=== PATIENT | female | born 1965 | race Two or more races ===

== ENCOUNTER 2019-01-23 08:41 | Inpatient (IN) | payer OTHER ==
[2019-01-23 09:51] VITALS: BMI 29.2
--- NOTE | 2019-01-23 11:02 | HP ---
CIWA Score Nausea/Vomitin Muscle Tremors: 4-Moderate,w/Arms Extend Anxiety: 3 Agitation: 4-Moderately Restless Paroxysmal Sweats: 3 Orientation: 2-Disoriented Date<2 days Tacttile Disturbances: 2-Mild Itch/Numbness/Burn Auditory Disturbances: 0-None Visual Disturbances: 0-None Headache: 2-Mild CIWA-Ar Total Score: 23 - Admission Criteria OASAS Guidelines: Admission for Medically Managed Detox: Requires at least one of the followin. CIWA greater than 12 2. Seizures within the past 24 hours 3. Delirium tremens within the past 24 hours 4. Hallucinations within the past 24 hours 5. Acute intervention needed for co occurring medical disorder 6. Acute intervention needed for co occurring psychiatric disorder 7. Severe withdrawal that cannot be handled at a lower level of care (continued vomiting, continued diarrhea, abnormal vital signs) requiring intravenous medication and/or fluids 8. Admission ROS S - HPI Chief Complaint: " I am here because I drink too much and I have anxiety and depression." Allergies/Adverse Reactions: Allergies Allergy/AdvReac Type Severity Reaction Status Date / Time No Known Allergies Allergy Verified 01/23/19 09:42 History of Present Illness: 53 female with history of alcohol dependence. Patient uses 30 oz of vodka daily, last drank last night. Patient denies seizures withdrawal and no prior blackouts. Patient detox at [facility] but did not complete it. 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 She was to get another MRI to see if it has spread or gotten larger. She says that she has a scheduled brain biopsy in 01/27/19. She does report having a TIA 5 years ago. She has been told that she has LFT's elevation in the past. HTN; she also has thrombocytopenia in the past. Meds: can't remember what meds she takes. All: None Patient has no legal issues pending. Patient is domiciled and has daughter, son and boyfriend that support her. - Ebola screening Have you traveled outside of the country in the last 21 days: No (N) Have you had contact with anyone from an Ebola affected area: No Have you been sick,other than usual withdrawal symptoms: No Do you have a fever: No - Review of Systems Constitutional: Diaphoresis, Loss of Appetite EENT: reports: Blurred Vision Respiratory: reports: No Symptoms reported Cardiac: reports: Chest Pain (but is more musculoskeletal in nature without associated dizziness or lightheadedness) GI: reports: No Symptoms Reported, Nausea, Vomiting, Abdominal cramping : reports: Other (dark and foul smelling urine....never completed an oral course of antibiotic.) Musculoskeletal: reports: Back Pain (stenosis of spine) Integumentary: reports: Bruising (both hands have bruising on dorsal surfaces.) Neuro: reports: Headache Endocrine: reports: No Symptoms Reported Hematology: reports: Anemia Psychiatric: reports: Judgement Intact, Mood/Affect Appropiate, Orientated x3 Other Systems: Reviewed and Negative Patient History - Patient Medical History Hx Anemia: Yes Hx Asthma: No Hx Chronic Obstructive Pulmonary Disease (COPD): No Hx Cancer: No Hx Cardiac Disorders: No Hx Congestive Heart Failure: No Hx Hypertension: Yes Hx Hypercholesterolemia: No Hx Pacemaker: No HX Cerebrovascular Accident: Yes (TIA 5 years ago) Hx Seizures: No Hx Dementia: No Hx Diabetes: No Hx Gastrointestinal Disorders: No Hx Liver Disease: Yes (told elevated lfts) Hx Genitourinary Disorders: Yes (UTI on antibiotics but didn't complete) Hx Sexually Transmitted Disorders: No Hx Renal Disease (ESRD): No Hx Thyroid Disease: No Hx Human Immunodeficiency Virus (HIV): No Hx Hepatitis C: No Hx Depression: Yes Hx Suicide Attempt: No Hx Bipolar Disorder: No Hx Schizophrenia: No - Patient Surgical History Past Surgical History: No Hx Neurologic Surgery: Yes (planned biopsy of brain tumor 01/27/19) Hx Cataract Extraction: No Hx Cardiac Surgery: No Hx Lung Surgery: No Hx Breast Surgery: No Hx Breast Biopsy: No Hx Abdominal Surgery: No Hx Appendectomy: No Hx Cholecystectomy: No Hx Genitourinary Surgery: No Hx Section: No Hx Orthopedic Surgery: No Hx Hysterectomy: No Anesthesia Reaction: No - Reproductive History Patient is a Female of Child Bearing Age (11 -55 yrs old): Yes - Smoking Cessation Smoking history: Current every day smoker Aproximately how many cigarettes per day: 10 Hx Chewing Tobacco Use: No Initiated information on smoking cessation: Yes 'Breaking Loose' booklet given: 01/23/19 - Substance & Tx. History Hx Alcohol Use: Yes (30 oz of vodka daily) Hx Substance Use: No Substance Use Type: Alcohol Hx Substance Use Treatment: Yes (detox at [facility]) - Substances abused Alcohol Substance route: Oral Frequency: Daily Amount used: 30 ounces of vodka. Age of first use: 12 Date of last use: 01/22/19 Family Disease History - Family Disease History Family History: Unremarkable Admission Physical Exam B[facility] - Vital Signs Vital Signs: Vital Signs - 24 hr 01/23/19 09:41 Temperature 97.6 F Pulse Rate 71 Respiratory 16 Rate Blood Pressure 196/104 H - Physical General Appearance: Yes: Moderate Distress, Alcohol on Breath HEENTM: Yes: EOMI, Hearing grossly Normal, Normocephalic, JENNIFER, Pharynx Normal, Tm's normal Respiratory: Yes: Chest Non-Tender, Lungs Clear, Normal Breath Sounds, No Respiratory Distress, No Accessory Muscle Use Neck: Yes: No masses,lesions,Nodules, Supple, Trachea in good position Breast: Yes: Within Normal Limits Cardiology: Yes: Regular Rhythm, Regular Rate, Tachycardia Abdominal: Yes: Non Tender, Soft, Increased Bowel Sounds Genitourinary: Yes: Polyuria Back: Yes: Normal Inspection Musculoskeletal: Yes: full range of Motion, Gait Steady Extremities: Yes: Normal Capillary Refill, Non-Tender, Other (bruising dorsum of hands bilaterally) Neurological: Yes: property economist II-XII NML intact, Fully Oriented, Alert, Motor Strength 5/5, Normal Mood/Affect Integumentary: Yes: Normal Color, Warm Lymphatic: Yes: Within Normal Limits - Diagnostic (1) Hypertension Current Visit: Yes Status: Acute (2) LFT elevation Current Visit: Yes Status: Acute (3) Urinary tract infection Current Visit: Yes Status: Acute (4) Spinal stenosis Current Visit: Yes Status: Acute (5) Brain tumor Current Visit: Yes Status: Acute (6) Thrombocytopenia Current Visit: Yes Status: Acute Screened but not Admitted - Documentation of Visit Screened but not Admitted: No Breathalyzer - Breathalyzer Breathalyzer: 0.071 Vital Signs - Vital Signs Vital signs refused: No Temperature: 97.6 F Temperature source: Oral Pulse Rate: 71 Respiratory Rate: 16 Blood Pressure: 196/104 BP Location: Left Arm Blood Pressure position: Sitting - Height Height: 5 ft 9 in - Weight Weight: 198 lb Weight measurement method: Standing scale - BMI Body Mass Index (BMI): 29.2 - Bowel Function Bowel Movement: Yes Urine Drug Screen - Test Device Lot number: [id number] Expiration date: 10/17/20 - Control Is test valid?: Yes - Results Drug screen NEGATIVE: No Urine drug screen results: BZO-Benzodiazepines Inpatient Rehab Admission - Rehab Decision to Admit Inpatient rehab admission?: No
[2019-01-23] MEDS ORDERED: ACETAMINOPHEN 325 MG TABLET (FP) PO PRN ×2 (11:19)
[2019-01-23] MEDS ORDERED: MAGNESIUM HYDROX 2400MG/30ML ORAL SUSPENSION 30 ML CUP PO PRN (11:19)
[2019-01-23] MEDS ORDERED: IBUPROFEN 400 MG TABLET (FP) PO PRN (11:19)
[2019-01-23] MEDS ORDERED: MAGNESIUM CITRATE 300 ML BOTTLE PO PRN (11:19)
[2019-01-23] MEDS ORDERED: MENTHOL/PHENOL 1 EACH UD MM PRN (11:19)
[2019-01-23] MEDS ORDERED: MAG HYDROX/AL HYDROX/SIMETH 30 ML UNIT-DOSE CUP PO PRN (11:19)
[2019-01-23] MEDS: LORazepam 1 MG TABLET PO PRN ×2 (12:19→18:18)
[2019-01-23] MEDS ORDERED: TRIMETHOBENZAMIDE HCL 200MG/2ML INJ IM PRN (14:18)
[2019-01-23] MEDS: THIAMINE HCL 100 MG TABLET (FP) PO SCH ×2 (14:20→22:29)
[2019-01-23] MEDS: CEPHALEXIN MONOHYDRATE 500 MG CAPSULE (UD) PO SCH ×3 (14:23→22:29)
--- NOTE | 2019-01-23 15:59 | PN ---
[facility] Progress Note Note: FIRST THREE BP READINGS NOTED TO BE SIGNIFICANTLY ELEVATED THUS FAR SINCE TIME OF DETOX ADMISSION. FIRST DOSE OF NADOLOL, 10 MG PO DAILY (PATIENT REPORTED THAT SHE TAKES THIS MEDICATION ON OUTPATIENT BASIS TIME OF ADMISSION TO DETOX ) ORDERED FOR NOW. WILL CONTINUE TO MONITOR BP. Radha ALTMAN NP
[2019-01-23] MEDS: hydrOXYzine PAMOATE 25 MG CAPSULE (FP) PO PRN ×2 (17:04→22:29)
[2019-01-23] MEDS: NADOLOL 20 MG TABLET (FP) PO SCH (17:04)
[2019-01-23 18:13] LABS: HEMATOCRIT 36.6 % (32.4-45.2); MCH 31.1 pg (25.7-33.7); MCHC 32.7 g/dl (32.0-36.0); MEAN CELL VOLUME 95.1 fl (80-96); MEAN PLT VOLUME 9.1 fl (7.5-11.1); PLATELET COUNT 52 K/MM3 (134-434); RBC 3.85 M/mm3 (3.60-5.2); RDW 18.5 % (11.6-15.6); WHITE BLOOD COUNT 3.3 K/mm3 (4.0-10.0)
[2019-01-23 18:18] LABS: BILIRUBIN,TOTAL 1.1 mg/dL (0.2-1); BLOOD UREA NITROGEN 12.6 mg/dL (7-18); CALCIUM 9.1 mg/dL (8.5-10.1); CREATININE 0.5 mg/dL (0.55-1.3); POTASSIUM 3.7 mmol/L (3.5-5.1)
[2019-01-23] MEDS: BISMUTH SUBSALICYLATE 262 MG/15 ML BTL PO PRN (19:08)
[2019-01-23] MEDS: LORazepam 2 MG TABLET PO SCH (22:29)
[2019-01-23] MEDS: METHOCARBAMOL 500 MG TABLET PO PRN (22:29)
--- NOTE | 2019-01-23 23:40 | PN ---
S Progress Note (SOAP) Subjective: (L) sided dull CP earlier. Denies pain or SOB at this time. States frequent vomiting r/t withdrawal. Objective: A&O. HR: RR Lungs CTA. Retching. Increased bowel sounds. Abd S/NT. Tremors. Vital Signs - 24 hr 01/23/19 01/23/19 01/23/19 09:41 11:18 14:31 Temperature 97.6 F 97.6 F 98.3 F Pulse Rate 71 71 73 Respiratory 16 16 18 Rate Blood Pressure 196/104 H 196/104 H 198/105 H 01/23/19 01/23/19 17:47 21:20 Temperature 98.2 F 98.2 F Pulse Rate 69 71 Respiratory 18 18 Rate Blood Pressure 186/101 H 158/99 EKG reviewed: NSR w/ (L) axis deviation; incomplete (R) BBB; cannot r/o anterior infarct; age undetermined. No prior EKS for comparison. Laboratory Last Values WBC 3.3 K/mm3 (4.0-10.0) L 01/23/19 13:30 RBC 3.85 M/mm3 (3.60-5.2) 01/23/19 13:30 Hgb 12.0 GM/dL (10.7-15.3) 01/23/19 13:30 Hct 36.6 % (32.4-45.2) 01/23/19 13:30 MCV 95.1 fl (80-96) 01/23/19 13:30 MCH 31.1 pg (25.7-33.7) 01/23/19 13:30 MCHC 32.7 g/dl (32.0-36.0) 01/23/19 13:30 RDW 18.5 % (11.6-15.6) H 01/23/19 13:30 Plt Count 52 K/MM3 (134-434) L 01/23/19 13:30 MPV 9.1 fl (7.5-11.1) 01/23/19 13:30 Sodium 137 mmol/L (136-145) 01/23/19 13:30 Potassium 3.7 mmol/L (3.5-5.1) 01/23/19 13:30 Chloride 102 mmol/L (98-107) 01/23/19 13:30 Carbon Dioxide 24 mmol/L (21-32) 01/23/19 13:30 Anion Gap 12 MMOL/L (8-16) 01/23/19 13:30 BUN 12.6 mg/dL (7-18) 01/23/19 13:30 Creatinine 0.5 mg/dL (0.55-1.3) L 01/23/19 13:30 Est GFR (CKD-EPI)AfAm 128.07 01/23/19 13:30 Est GFR (CKD-EPI)NonAf 110.50 01/23/19 13:30 Random Glucose 95 mg/dL (74-106) 01/23/19 13:30 Calcium 9.1 mg/dL (8.5-10.1) 01/23/19 13:30 Total Bilirubin 1.1 mg/dL (0.2-1) H 01/23/19 13:30 AST 496 U/L (15-37) H 01/23/19 13:30 ALT 118 U/L (13-61) H 01/23/19 13:30 Alkaline Phosphatase 223 U/L (45-117) H 01/23/19 13:30 Total Protein 8.0 g/dl (6.4-8.2) 01/23/19 13:30 Albumin 4.0 g/dl (3.4-5.0) 01/23/19 13:30 RPR Titer Nonreactive (NONREACTIVE) 01/23/19 13:30 Labs reviewed. 01/24/19 00:20 Assessment: Alcohol withdrawal. Hypertension. Elevated LFT's. Past hx chest pain. Abnormal EKG 01/24/19 00:20 Plan: Send to ED via ambulance. Report given to Dr. Almonte @ [facility] ED. Patient to return to , from ED, after eval. Monitor VS q4h
[2019-01-24] MEDS: LORazepam 2 MG TABLET PO SCH ×4 (05:45→22:43)
[2019-01-24] MEDS ORDERED: cloNIDine HCL 0.1 MG TABLET PO ONE (08:04)
--- NOTE | 2019-01-24 08:08 | PN ---
[facility] Progress Note Note: Patient's blood pressure this morning is B/P 181/114 Vital Signs Temperature 99.0 F 01/24/19 07:01 Pulse Rate 80 01/24/19 07:57 Respiratory Rate 18 01/24/19 07:57 Blood Pressure 181/114 H 01/24/19 07:57 O2 Sat by Pulse Oximetry (%) Action: Clonidine 0.1mg tablet oral daily
[2019-01-24] MEDS: LORazepam 1 MG TABLET PO PRN (08:57)
[2019-01-24] MEDS ORDERED: NADOLOL 20 MG TABLET (FP) PO SCH (10:00)
[2019-01-24] MEDS: PRENATAL VITAMINS W/ FOLIC ACID TABLET (FP) PO SCH (10:21)
[2019-01-24] MEDS: NADOLOL 20 MG TABLET (FP) PO SCH (10:21)
[2019-01-24] MEDS: CEPHALEXIN MONOHYDRATE 500 MG CAPSULE (UD) PO SCH ×4 (10:21→22:43)
[2019-01-24] MEDS: THIAMINE HCL 100 MG TABLET (FP) PO SCH ×2 (10:23→22:42)
[2019-01-24] MEDS: LIDOCAINE 5% TOPICAL PATCH TP SCH (11:33)
--- NOTE | 2019-01-24 13:34 | CONSULT ---
[facility] Psychiatric Consult - Data Date of interview: 01/24/19 Admission source: [facility] Identifying data: First admission to [facility] for this 53 y/o [place]born female self-referred for detoxification (alcohol). Interviewed at [address] [place] [address]. Patient is , mother of two, domiciled (lives with second ), unemployed, disabled and supported by spouse. Substance Abuse History: Discussed with the patient. Details concordant with current [facility] report as follows : Smoking history: Current every day smoker. Aproximately how many cigarettes per day: 10. Hx Chewing Tobacco Use: No. Initiated information on smoking cessation: Yes. 'Breaking Loose' booklet given : 01/23/19. - Substance & Tx. History. Hx Alcohol Use: Yes (30 oz of vodka daily). Hx Substance Use: No. Substance Use Type: Alcohol. Hx Substance Use Treatment: Yes (detox at [facility]). - Substances abused. Alcohol. Substance route: Oral. Frequency: Daily. Amount used: 30 ounces of vodka. Age of first use: 12. Date of last use: 01/22/19 Medical History: Remarkable for a history of transient ischemic attacks, brain tumor, spinal stenosis, hypertension, elevated transaminases and difficult ambulation (patient uses a cane). Psychiatric History: Patient denies history of psychiatric hospitalizations, psychiatric OPD care or suicide attempts. She admits to chronic dysphoria and mild anxiety for which she gets " a medication " from her primary care provider. In this interview, the patient has expressed her preference for psychotherapy and counseling. Physical/Sexual Abuse/Trauma History: Patient denies history of abuse. Additional Comment: Urine drug screen results: BZO-Benzodiazepines. Noted. Mental Status Exam - Mental Status Exam Alert and Oriented to: Time, Place, Person Cognitive Function: Good Patient Appearance: Well Groomed Mood: Apprehensive (moderately anxious) Affect: Appropriate, Normal Range Patient Behavior: Fatigued, Appropriate, Cooperative Speech Pattern: Clear (fluent in british [place] islander), Appropriate Voice Loudness: Normal Thought Process: Intact, Goal Oriented Thought Disorder: Not Present Hallucinations: Denies Suicidal Ideation: Denies Homicidal Ideation: Denies Insight/Judgement: Fair Sleep: Well Appetite: Fair Gait/Station: Other (walks with a cane) Psychiatric Findings - Problem List ([place] 1, 2,3) (1) Alcohol use disorder Current Visit: Yes Status: Chronic (2) Alcohol-induced mood disorder Current Visit: Yes Status: Suspected - Initial Treatment Plan Initial Treatment Plan: Psychoeducation. Sleep hygiene. Support. Counseling. Detoxification. Observation.
--- NOTE | 2019-01-24 17:09 | PN ---
[facility] CIWA - CIWA Score Nausea/Vomitin-No Nausea/No Vomiting Muscle Tremors: 3 Anxiety: 3 Agitation: 2 Paroxysmal Sweats: 3 Orientation: 0-Oriented Tacttile Disturbances: 1-Very Mild Itch/Numbness Auditory Disturbances: 0-None Visual Disturbances: 1-Very Mild Sensitivity Headache: 0-None Present CIWA-Ar Total Score: 13 S Progress Note (SOAP) Subjective: Tremors, Sweating, Anxious. Objective: PATIENT A & O X 3, OBSERVED AMBULATING ON DETOX UNIT WITH ASSISTANCE OF A CANE. IN NO ACUTE DISTRESS. PATIENT DENIES CHEST PAIN, DIZZINESS, AND SOB AT THIS TIME. 01/24/19 17:07 Vital Signs Temperature 97.0 F L 01/24/19 13:36 Pulse Rate 76 01/24/19 13:36 Respiratory Rate 18 01/24/19 13:36 Blood Pressure 147/96 01/24/19 13:36 O2 Sat by Pulse Oximetry (%) Laboratory Tests 01/23/19 01/23/19 01/23/19 13:30 13:30 13:30 WBC 3.3 L RBC 3.85 Hgb 12.0 Hct 36.6 MCV 95.1 MCH 31.1 MCHC 32.7 RDW 18.5 H Plt Count 52 L MPV 9.1 Sodium 137 Potassium 3.7 Chloride 102 Carbon Dioxide 24 Anion Gap 12 BUN 12.6 Creatinine 0.5 L Est GFR (CKD-EPI)AfAm 128.07 Est GFR (CKD-EPI)NonAf 110.50 Random Glucose 95 Calcium 9.1 Total Bilirubin 1.1 H AST 496 H ALT 118 H Alkaline Phosphatase 223 H Total Protein 8.0 Albumin 4.0 RPR Titer Nonreactive LABS NOTED. RESULTS OF DETOX ADMISSION QFT /TB TEST PENDING. 01/24/19 17:09 Assessment: 01/24/19 17:09 WITHDRAWAL SYMPTOMS. LEUKOPENIA. THROMBOCYTOPENIA. ELEVATED LIVER ENZYMES (PATIENT REPORTS HISTORY OF CIRRHOSIS OF LIVER). HYPERTENSION. 01/24/19 17:10 Plan: CONTINUE DETOX. INCREASE DAILY PO WATER INTAKE. INCREASE DAILY DOSE OF NADOLOL TO 20 MG PO DAILY FOR PERSISTENTLY ELEVATED BLOOD PRESSURE DESPITE PREVIOUS TREATMENT. HEPATIC FUNCTION PANEL ORDERED FOR TOMORROW AM TO SEE IF ANY CHANGE IN LIVER ENZYME LEVELS FROM DETOX ADMISSION LIVER ENZYME LEVELS. PATIENT ADVISED TO FOLLOW-UP WITH DEVELOPMENT SPEC SOON POSSIBLE AFTER DISCHARGE FROM DETOX UNIT FOR GENERAL MEDICAL EVALUATION AND FOR HISTORY OF HYPERTENSION AND FOR ELEVATED BLOOD PRESSURE READINGS NOTED WHILE ADMITTED FOR DETOX. PATIENT VERBALIZED UNDERSTANDING OF RECOMMENDATION.
[2019-01-24] MEDS ORDERED: NADOLOL 20 MG TABLET (FP) PO ONE (17:15)
[2019-01-24] MEDS: LACTOBACILLUS ACIDOPHILUS 1 TABLET PO SCH (17:40)
[2019-01-24] MEDS: MELATONIN 5 MG TABLETS PO PRN (22:44)
[2019-01-24] MEDS: LIDOCAINE PATCH REMOVAL MC SCH (23:00)
[2019-01-25] MEDS: LORazepam 1 MG TABLET PO SCH ×4 (05:54→22:10)
[2019-01-25] MEDS: LACTOBACILLUS ACIDOPHILUS 1 TABLET PO SCH (10:23)
[2019-01-25] MEDS: THIAMINE HCL 100 MG TABLET (FP) PO SCH ×2 (10:23→22:11)
[2019-01-25] MEDS: NADOLOL 20 MG TABLET (FP) PO SCH (10:23)
[2019-01-25] MEDS: PRENATAL VITAMINS W/ FOLIC ACID TABLET (FP) PO SCH (10:23)
[2019-01-25] MEDS: CEPHALEXIN MONOHYDRATE 500 MG CAPSULE (UD) PO SCH ×4 (10:23→22:10)
[2019-01-25] MEDS: LIDOCAINE 5% TOPICAL PATCH TP SCH (10:24)
[2019-01-25 10:35] LABS: ALBUMIN 4.1 g/dl (3.4-5.0); BILIRUBIN,DIRECT 0.8 mg/dL (0.0-0.2); BILIRUBIN,TOTAL 1.8 mg/dL (0.2-1); TOT PROT 8.5 g/dl (6.4-8.2)
--- NOTE | 2019-01-25 16:04 | PN ---
[facility] CIWA - CIWA Score Nausea/Vomitin-No Nausea/No Vomiting Muscle Tremors: 2 Anxiety: 3 Agitation: 2 Paroxysmal Sweats: 1-Minimal Palms Moist Orientation: 0-Oriented Tacttile Disturbances: 1-Very Mild Itch/Numbness Auditory Disturbances: 0-None Visual Disturbances: 0-None Headache: 0-None Present CIWA-Ar Total Score: 9 S Progress Note (SOAP) Subjective: 53 years old female 1st patient [facility] admission was admitted on 01/23/19 for alcohol withdrawal sx managment doing well with ativan detox regimen social wtih peers in day room tolerate cephalexin well Objective: 01/25/19 16:06 Vital Signs Temperature 97.9 F 01/25/19 13:32 Pulse Rate 74 01/25/19 13:32 Respiratory Rate 18 01/25/19 13:32 Blood Pressure 128/81 01/25/19 13:32 O2 Sat by Pulse Oximetry (%) Laboratory Last Values WBC 3.3 K/mm3 (4.0-10.0) L 01/23/19 13:30 RBC 3.85 M/mm3 (3.60-5.2) 01/23/19 13:30 Hgb 12.0 GM/dL (10.7-15.3) 01/23/19 13:30 Hct 36.6 % (32.4-45.2) 01/23/19 13:30 MCV 95.1 fl (80-96) 01/23/19 13:30 MCH 31.1 pg (25.7-33.7) 01/23/19 13:30 MCHC 32.7 g/dl (32.0-36.0) 01/23/19 13:30 RDW 18.5 % (11.6-15.6) H 01/23/19 13:30 Plt Count 52 K/MM3 (134-434) L 01/23/19 13:30 MPV 9.1 fl (7.5-11.1) 01/23/19 13:30 Sodium 137 mmol/L (136-145) 01/23/19 13:30 Potassium 3.7 mmol/L (3.5-5.1) 01/23/19 13:30 Chloride 102 mmol/L (98-107) 01/23/19 13:30 Carbon Dioxide 24 mmol/L (21-32) 01/23/19 13:30 Anion Gap 12 MMOL/L (8-16) 01/23/19 13:30 BUN 12.6 mg/dL (7-18) 01/23/19 13:30 Creatinine 0.5 mg/dL (0.55-1.3) L 01/23/19 13:30 Est GFR (CKD-EPI)AfAm 128.07 01/23/19 13:30 Est GFR (CKD-EPI)NonAf 110.50 01/23/19 13:30 Random Glucose 95 mg/dL (74-106) 01/23/19 13:30 Calcium 9.1 mg/dL (8.5-10.1) 01/23/19 13:30 Total Bilirubin 1.8 mg/dL (0.2-1) H 01/25/19 08:00 Direct Bilirubin 0.8 mg/dL (0.0-0.2) H 01/25/19 08:00 AST 248 U/L (15-37) H 01/25/19 08:00 ALT 91 U/L (13-61) H 01/25/19 08:00 Alkaline Phosphatase 205 U/L (45-117) H 01/25/19 08:00 Total Protein 8.5 g/dl (6.4-8.2) H 01/25/19 08:00 Albumin 4.1 g/dl (3.4-5.0) 01/25/19 08:00 RPR Titer Nonreactive (NONREACTIVE) 01/23/19 13:30 TB (QFT) Incubation (.) 01/23/19 13:30 TB Test (QFT) Nil 0.04 IU/mL (.) 01/23/19 13:30 TB Test (QFT) Mitogen 5.99 IU/mL (.) 01/23/19 13:30 TB Test (QFT) Antigen 0.03 IU/mL (.) 01/23/19 13:30 TB Test (QFT) Negative (Negative) 01/23/19 13:30 TB Positive Criteria (.) 01/23/19 13:30 lab noted ast reduction about 50% repeat ast 01/25/19 16:08 Assessment: 01/25/19 16:09 alcohol withdrawal sx Plan: continue ativan detox regimen
--- NOTE | 2019-01-25 17:18 | EKG ---
Test Reason : Blood Pressure : / mmHG Vent. Rate : 069 BPM Atrial Rate : 069 BPM P-R Int : 158 ms QRS Dur : 116 ms QT Int : 446 ms P-R-T Axes : 044 -33 -10 degrees QTc Int : 477 ms NORMAL SINUS RHYTHM LEFT AXIS DEVIATION INCOMPLETE RIGHT BUNDLE BRANCH BLOCK CANNOT RULE OUT ANTERIOR INFARCT , AGE UNDETERMINED ABNORMAL ECG NO PREVIOUS ECGS AVAILABLE Confirmed by DEBRA HERRMANN MD ([id number]) on 01/25/2019 5:18:25 PM Referred By: Confirmed By:DEBRA HERRMANN MD
[2019-01-25] MEDS: MELATONIN 5 MG TABLETS PO PRN (22:11)
[2019-01-25] MEDS: LIDOCAINE PATCH REMOVAL MC SCH (22:11)
[2019-01-26] MEDS ORDERED: LORazepam 0.5 MG TABLET PO PRN ×2
[2019-01-26] MEDS: LORazepam 0.5 MG TABLET PO SCH ×4 (05:29→22:35)
[2019-01-26] MEDS: LACTOBACILLUS ACIDOPHILUS 1 TABLET PO SCH (10:25)
[2019-01-26] MEDS: PRENATAL VITAMINS W/ FOLIC ACID TABLET (FP) PO SCH (10:25)
[2019-01-26] MEDS: NADOLOL 20 MG TABLET (FP) PO SCH (10:25)
[2019-01-26] MEDS: LIDOCAINE 5% TOPICAL PATCH TP SCH (10:26)
[2019-01-26] MEDS: THIAMINE HCL 100 MG TABLET (FP) PO SCH ×2 (10:28→22:35)
[2019-01-26] MEDS: CEPHALEXIN MONOHYDRATE 500 MG CAPSULE (UD) PO SCH ×4 (10:36→22:35)
--- NOTE | 2019-01-26 11:22 | PN ---
S CIWA - CIWA Score Nausea/Vomitin-No Nausea/No Vomiting Muscle Tremors: 2 Anxiety: 2 Agitation: 2 Paroxysmal Sweats: No Perspiration Orientation: 0-Oriented Tacttile Disturbances: 0-None Auditory Disturbances: 0-None Visual Disturbances: 0-None Headache: 0-None Present CIWA-Ar Total Score: 6 BHS Progress Note (SOAP) Subjective: doing well with ativan detox regimen sleep better at night less tremor Objective: 01/26/19 11:31 Vital Signs Temperature 97.3 F L 01/26/19 09:31 Pulse Rate 83 01/26/19 09:31 Respiratory Rate 18 01/26/19 09:31 Blood Pressure 141/92 01/26/19 09:31 O2 Sat by Pulse Oximetry (%) Laboratory Last Values WBC 3.3 K/mm3 (4.0-10.0) L 01/23/19 13:30 RBC 3.85 M/mm3 (3.60-5.2) 01/23/19 13:30 Hgb 12.0 GM/dL (10.7-15.3) 01/23/19 13:30 Hct 36.6 % (32.4-45.2) 01/23/19 13:30 MCV 95.1 fl (80-96) 01/23/19 13:30 MCH 31.1 pg (25.7-33.7) 01/23/19 13:30 MCHC 32.7 g/dl (32.0-36.0) 01/23/19 13:30 RDW 18.5 % (11.6-15.6) H 01/23/19 13:30 Plt Count 52 K/MM3 (134-434) L 01/23/19 13:30 MPV 9.1 fl (7.5-11.1) 01/23/19 13:30 Sodium 137 mmol/L (136-145) 01/23/19 13:30 Potassium 3.7 mmol/L (3.5-5.1) 01/23/19 13:30 Chloride 102 mmol/L (98-107) 01/23/19 13:30 Carbon Dioxide 24 mmol/L (21-32) 01/23/19 13:30 Anion Gap 12 MMOL/L (8-16) 01/23/19 13:30 BUN 12.6 mg/dL (7-18) 01/23/19 13:30 Creatinine 0.5 mg/dL (0.55-1.3) L 01/23/19 13:30 Est GFR (CKD-EPI)AfAm 128.07 01/23/19 13:30 Est GFR (CKD-EPI)NonAf 110.50 01/23/19 13:30 Random Glucose 95 mg/dL (74-106) 01/23/19 13:30 Calcium 9.1 mg/dL (8.5-10.1) 01/23/19 13:30 Total Bilirubin 1.8 mg/dL (0.2-1) H 01/25/19 08:00 Direct Bilirubin 0.8 mg/dL (0.0-0.2) H 01/25/19 08:00 AST 248 U/L (15-37) H 01/25/19 08:00 ALT 91 U/L (13-61) H 01/25/19 08:00 Alkaline Phosphatase 205 U/L (45-117) H 01/25/19 08:00 Total Protein 8.5 g/dl (6.4-8.2) H 01/25/19 08:00 Albumin 4.1 g/dl (3.4-5.0) 01/25/19 08:00 POC Urine HCG, Qual Negative 01/23/19 10:44 RPR Titer Nonreactive (NONREACTIVE) 01/23/19 13:30 TB (QFT) Incubation (.) 01/23/19 13:30 TB Test (QFT) Nil 0.04 IU/mL (.) 01/23/19 13:30 TB Test (QFT) Mitogen 5.99 IU/mL (.) 01/23/19 13:30 TB Test (QFT) Antigen 0.03 IU/mL (.) 01/23/19 13:30 TB Test (QFT) Negative (Negative) 01/23/19 13:30 TB Positive Criteria (.) 01/23/19 13:30 01/26/19 11:31 lab noted repeat ast pending bp elevation resume losartan 100 and hctz 25 and increase nadolol to 40 mg as per home medication Assessment: 01/26/19 11:33 alcohol withdrawal sx Plan: continue ativan detox regimen
[2019-01-26] MEDS ORDERED: ASPIRIN 81 MG CHEWABLE TABLETS PO SCH (11:55)
[2019-01-26] MEDS ORDERED: NADOLOL 20 MG TABLET (FP) PO ONE (11:55)
[2019-01-26] MEDS ORDERED: LOSARTAN 50MG/HCTZ 12.5MG 1 TAB (FP) PO SCH (11:55)
[2019-01-26] MEDS: METHOCARBAMOL 500 MG TABLET PO PRN (18:43)
[2019-01-26] MEDS: BISMUTH SUBSALICYLATE 262 MG/15 ML BTL PO PRN (19:36)
[2019-01-26] MEDS: MELATONIN 5 MG TABLETS PO PRN (22:35)
[2019-01-26] MEDS: LIDOCAINE PATCH REMOVAL MC SCH (22:40)
[2019-01-27] MEDS ORDERED: LORazepam 0.5 MG TABLET PO ONE (05:00)
[2019-01-27 06:25] VITALS: BP 169/105; PULSE 73; TEMP 99.1
[2019-01-27] MEDS ORDERED: cloNIDine HCL 0.1 MG TABLET PO ONE (07:37)
--- NOTE | 2019-01-27 07:39 | PN ---
S Progress Note Note: Patient's blood pressure thias morning was B/P 165/105. Patient is asymptomatic Vital Signs Temperature 99.1 F 01/27/19 06:25 Pulse Rate 73 01/27/19 06:25 Respiratory Rate 18 01/27/19 06:25 Blood Pressure 169/105 H 01/27/19 06:25 O2 Sat by Pulse Oximetry (%) Action: Clonidine 0.1mg tablet oral ordered
[2019-01-27] MEDS ORDERED: NADOLOL 20 MG TABLET (FP) PO SCH (10:00)
--- NOTE | 2019-01-27 13:34 | DS ---
[facility] Detox Discharge Summary Admission Date: 01/23/19 Discharge Date: 01/27/19 - History Present History: Alcohol Dependence Additional Comments: 53 years old female admitted on 01/23/19 for alcohol withdrawal sx management dong well with ativan detox regimen no complication through out the detox stay long history of uncontrolled bp report average systolic 200-180 encourage the patient pickup medication from the pharmacy and monitoring bp daily at home as well as follow with primary care provider patient is alert oriented x 3 using cane as ambulation aid sporadically denies headache denies blurred vision denies dizziness speech clearly coherently no chest pain no shortness of breath extremities no weakness Cardiac S1S2 regular rate rhythm ekg indicates right bundle block incomplete respiratory: no wheezing no advantitial lung sound - Physical Exam Results Vital Signs: Vital Signs Temperature 99.1 F 01/27/19 06:25 Pulse Rate 73 01/27/19 06:25 Respiratory Rate 18 01/27/19 06:25 Blood Pressure 169/105 H 01/27/19 06:25 O2 Sat by Pulse Oximetry (%) Pertinent Admission Physical Exam Findings: alcohol withdrawal sx Laboratory Last Values WBC 3.3 K/mm3 (4.0-10.0) L 01/23/19 13:30 RBC 3.85 M/mm3 (3.60-5.2) 01/23/19 13:30 Hgb 12.0 GM/dL (10.7-15.3) 01/23/19 13:30 Hct 36.6 % (32.4-45.2) 01/23/19 13:30 MCV 95.1 fl (80-96) 01/23/19 13:30 MCH 31.1 pg (25.7-33.7) 01/23/19 13:30 MCHC 32.7 g/dl (32.0-36.0) 01/23/19 13:30 RDW 18.5 % (11.6-15.6) H 01/23/19 13:30 Plt Count 52 K/MM3 (134-434) L 01/23/19 13:30 MPV 9.1 fl (7.5-11.1) 01/23/19 13:30 Sodium 137 mmol/L (136-145) 01/23/19 13:30 Potassium 3.7 mmol/L (3.5-5.1) 01/23/19 13:30 Chloride 102 mmol/L (98-107) 01/23/19 13:30 Carbon Dioxide 24 mmol/L (21-32) 01/23/19 13:30 Anion Gap 12 MMOL/L (8-16) 01/23/19 13:30 BUN 12.6 mg/dL (7-18) 01/23/19 13:30 Creatinine 0.5 mg/dL (0.55-1.3) L 01/23/19 13:30 Est GFR (CKD-EPI)AfAm 128.07 01/23/19 13:30 Est GFR (CKD-EPI)NonAf 110.50 01/23/19 13:30 Random Glucose 95 mg/dL (74-106) 01/23/19 13:30 Calcium 9.1 mg/dL (8.5-10.1) 01/23/19 13:30 Total Bilirubin 1.8 mg/dL (0.2-1) H 01/25/19 08:00 Direct Bilirubin 0.8 mg/dL (0.0-0.2) H 01/25/19 08:00 AST 166 U/L (15-37) H 01/26/19 09:00 ALT 91 U/L (13-61) H 01/25/19 08:00 Alkaline Phosphatase 205 U/L (45-117) H 01/25/19 08:00 Total Protein 8.5 g/dl (6.4-8.2) H 01/25/19 08:00 Albumin 4.1 g/dl (3.4-5.0) 01/25/19 08:00 POC Urine HCG, Qual Negative 01/23/19 10:44 RPR Titer Nonreactive (NONREACTIVE) 01/23/19 13:30 TB (QFT) Incubation (.) 01/23/19 13:30 TB Test (QFT) Nil 0.04 IU/mL (.) 01/23/19 13:30 TB Test (QFT) Mitogen 5.99 IU/mL (.) 01/23/19 13:30 TB Test (QFT) Antigen 0.03 IU/mL (.) 01/23/19 13:30 TB Test (QFT) Negative (Negative) 01/23/19 13:30 TB Positive Criteria (.) 09/06/19 13:30 lab noted - Treatment Hospital Course: Detox Protocol Followed, Detoxed Safely, Responded well, Discharged Condition Good, Rehab Referral Accepted Patient has Accepted a Rehab Referral to: [facility] - Medication Discharge Medications: Ambulatory Orders Duloxetine HCl [Cymbalta -] 20 mg PO DAILY 01/23/19 Folic Acid 1 mg PO DAILY 01/23/19 Hydroxyzine HCl 50 mg PO TID 01/23/19 Multivitamins [Multivit ([facility] Formulary)] 1 tablet PO DAILY 01/23/19 Nadolol 10 mg PO DAILY 01/23/19 Naproxen 500 mg PO BID 01/23/19 Vitamin B-1 100 mg PO DAILY 01/23/19 Cephalexin [Keflex] 500 mg PO QID #10 capsule 01/26/19 Losartan 50Mg/Hctz 12.5MG [Hyzaar -] 2 tab PO DAILY #60 tablet 01/27/19 Nadolol [Corgard -] 40 mg PO DAILY #30 tablet 01/27/19 - Diagnosis (1) Hypertension Status: Chronic Qualifiers: Hypertension type: unspecified Qualified Code(s): I10 - Essential (primary ) hypertension (2) Alcohol use disorder Status: Acute - AMA Did Patient Leave Against Medical Advice: No CIWA Score - CIWA Score Nausea/Vomitin-No Nausea/No Vomiting Muscle Tremors: 1-None Visible, but [place] Anxiety: 2 Agitation: 1-Slight > Activity Paroxysmal Sweats: No Perspiration Orientation: 0-Oriented Tacttile Disturbances: 0-None Auditory Disturbances: 0-None Visual Disturbances: 0-None Headache: 0-None Present CIWA-Ar Total Score: 4
== END 2019-01-27 08:49 | disposition home or self-care (01) | DRG 775 ==
LOC: YASAS 08:41 → Y3N 11:38
PROVIDERS: ADMIT Surgery; ATTEND Surgery
PROC: HZ2ZZZZ Detoxification Services for Substance Abuse Treatment (ICD-10-PCS; principal; 2019-01-23)
DX: F10.230 Alcohol dependence with withdrawal, uncomplicated (principal); F17.210 Nicotine dependence, cigarettes, uncomplicated; F10.24 Alcohol dependence with alcohol-induced mood disorder; F32.9 Major depressive disorder, single episode, unspecified; I10 Essential (primary) hypertension; D69.6 Thrombocytopenia, unspecified; D72.819 Decreased white blood cell count, unspecified; D49.6 Neoplasm of unspecified behavior of brain; M48.00 Spinal stenosis, site unspecified; R94.5 Abnormal results of liver function studies; R94.31 Abnormal electrocardiogram [ECG] [EKG]; Z87.440 Personal history of urinary (tract) infections; Z91.14 Patient's other noncompliance with medication regimen
CPT/HCPCS: 36415; 80053; 80076; 81025; 84450; 85027; 86480; 86593; 93005; 93010; J0735

== ENCOUNTER 2019-01-24 00:19 | Emergency (ER) | payer OTHER ==
--- NOTE | 2019-01-24 01:18 | PDOC ---
Attending Attestation - Resident Resident Name: Artemio Cornejo - ED Attending Attestation I have performed the following: I have examined & evaluated the patient, The case was reviewed & discussed with the resident, I agree w/resident's findings & plan - HPI HPI: 01/24/19 05:44 Pt came with HTN and EKH nonspecific changes and she had chest pain while she was at [facility]. CP is gone prior to their sending patient to us, but given her age and HTN ,they wants us to r/o cardiac findings. - Physicial Exam PE: 01/24/19 05:45 Agree with resident exam. - Medical Decision Making 01/24/19 05:45 Pt has normal labs and no specific EKG changes and normal vitals. She will be given an extra dose of her BP meds. She is stable to go back to [facility] to continue her detox therapy.
--- NOTE | 2019-01-24 01:28 | PDOC ---
History of Present Illness - General Chief Complaint: Pain Stated Complaint: ABNORMAL EKG Time Seen by Provider: 01/24/19 01:04 History Source: Patient Exam Limitations: No Limitations - History of Present Illness Initial Comments: 53 yo Obese F presents from [facility] bc she had an abnormal EKG. Patient is currently in [facility] for alcohol abuse detoxification. [facility] requested that patient have a cardiac profile drawn to evaluate for ACS. Patient denies having any chest pain, SOB, difficulty breathing or any other complaints. She states she does not believe she needs to be in the ER but [facility] forced her to come. Patient denies chest pain with physical activity, denies nausea, vomiting, diaphoresis. Denies difficulty lying flat. Patient endorses Diarrhea for the past 3 days secondary to her alcohol withdrawal and treatment. Otherwise she has no complaints. PCP: Chelsie Edgar Hx: Alcoholic Past History - Past Medical History Allergies/Adverse Reactions: Allergies Allergy/AdvReac Type Severity Reaction Status Date / Time No Known Allergies Allergy Verified 01/24/19 01:59 Home Medications: Ambulatory Orders Cephalexin [Keflex] 500 mg PO QID 01/23/19 Duloxetine HCl [Cymbalta -] 20 mg PO DAILY 01/23/19 Folic Acid 1 mg PO DAILY 01/23/19 Hydroxyzine HCl 50 mg PO TID 01/23/19 Multivitamins [Multivit ([facility] Formulary)] 1 tablet PO DAILY 01/23/19 Nadolol 10 mg PO DAILY 01/23/19 Naproxen 500 mg PO BID 01/23/19 Vitamin B-1 100 mg PO DAILY 01/23/19 Anemia: Yes Asthma: No Cancer: No Cardiac Disorders: No CVA: Yes (TIA 5 years ago) COPD: No CHF: No Dementia: No Diabetes: No GI Disorders: No Disorders: No HTN: Yes (non-conpliant with meds) Hypercholesterolemia: No Kidney Stones: No Liver Disease: Yes (told elevated lfts) Seizures: No Thyroid Disease: No - Surgical History Abdominal Surgery: No Appendectomy: No Cardiac Surgery: No Cholecystectomy: No Lung Surgery: No Neurologic Surgery: Yes (planned biopsy of brain tumor 01/27/19) Orthopedic Surgery: No - Reproductive History PID: No - Suicide/Smoking/Psychosocial Hx Smoking History: Never smoked Number of Cigarettes Smoked Daily: 10 'Breaking Loose' booklet given: 01/23/19 Hx Alcohol Use: Yes (30 oz of vodka daily) Drug/Substance Use Hx: No Substance Use Type: Alcohol Hx Substance Use Treatment: Yes Review of Systems - Review of Systems Able to Perform ROS?: Yes Comments:: CONSTITUTIONAL: Absent: fever, no chills, no fatigue EYES: Absent: visual changes ENT: Absent: ear pain, no sore throat CARDIOVASCULAR: Absent: chest pain, no palpitations RESPIRATORY: Absent: cough, no SOB GI: Present: diarrhea Absent: abdominal pain, no nausea, no vomiting, no constipation GENITOURINARY: Absent: dysuria, no frequency, no hematuria MUSKULOSKELETAL: Absent: back pain, no arthralgia, no myalgia SKIN: Absent: rash NEURO: Absent: headache *Physical Exam - Physical Exam Comments: GENERAL: Well-appearing, well-nourished. No apparent distress. HEENT: Normocephalic, atraumatic. PERRL, EOM intact. CARDIOVASCULAR: Normal S1, S2. Regular rate and rhythm. PULMONARY: No evidence of respiratory distress. Lungs clear to auscultation bilaterally. No wheezing, rales or rhonchi. ABDOMEN: Hyperactive bowel sounds. Soft, non-distended, non-tender. EXTREMITIES: Normal ROM in all four extremities. No gross deformities. SKIN: Warm, dry. No rash NEUROLOGICAL: No focal neurological deficits. Medical Decision Making - Medical Decision Making 53 yo Obese F presents from [facility] bc she had an abnormal EKG. Patient is currently in [facility] for alcohol abuse detoxification. [facility] requested that patient have a cardiac profile drawn to evaluate for ACS. Patient denies having any chest pain, SOB, difficulty breathing or any other complaints. She states she does not believe she needs to be in the ER but [facility] forced her to come. Patient denies chest pain with physical activity, denies nausea, vomiting, diaphoresis. Denies difficulty lying flat. Patient endorses Diarrhea for the past 3 days secondary to her alcohol withdrawal and treatment. Otherwise she has no complaints. Vital Signs Temp Pulse Resp BP Pulse Ox 98.4 F 80 21 H 154/102 H 98 01/24/19 00:25 01/24/19 00:25 01/24/19 00:25 01/24/19 00:25 01/24/19 00:25 MDM: Patient presents for abnormal EKG. Will obtain cardiac enzymes then DC to [facility] if normal. They are holding a bed for he.r - Cardiac enzymes normal Dispo: [facility] *DC/Admit/Observation/Transfer Diagnosis at time of Disposition: Abnormal EKG - Discharge Dispostion Disposition: HOME Condition at time of disposition: Improved Decision to Admit order: No - Referrals Referrals: Chelsie Chowdhury [Primary Care Provider] - - Patient Instructions Printed Discharge Instructions: Electrocardiogram, DI for Atypical Chest Pain, DI for Chest Pain Additional Instructions: You came into the ER with an abnormal EKG. We did cardiac enzymes which were normal. Come back to the ER if you have any chest pain. Print Language: VINCENTIAN - Post Discharge Activity
[2019-01-24 01:59] VITALS: BP 154/102; PULSE 80; TEMP 98.4; BMI 60.2
[2019-01-24] MEDS ORDERED: NADOLOL 20 MG TABLET (FP) PO SCH (10:00)
[2019-01-24 18:31] LABS: ALBUMIN 3.9 g/dl (3.4-5.0); ALK PHOS 205 U/L (45-117); ANION GAP 15 MMOL/L (8-16); BILIRUBIN,TOTAL 1.5 mg/dL (0.2-1); BLOOD UREA NITROGEN 14.3 mg/dL (7-18); CALCIUM 8.9 mg/dL (8.5-10.1); CHLORIDE 96 mmol/L (98-107); CO2 23 mmol/L (21-32); CREATININE 0.7 mg/dL (0.55-1.3); GLUCOSE,RANDOM 96 mg/dL (74-106); POTASSIUM 3.8 mmol/L (3.5-5.1); SGOT/AST 343 U/L (15-37); SGPT/ALT 101 U/L (13-61); SODIUM 133 mmol/L (136-145)
--- NOTE | 2019-01-26 11:32 | EKG ---
Test Reason : Blood Pressure : / mmHG Vent. Rate : 079 BPM Atrial Rate : 079 BPM P-R Int : 162 ms QRS Dur : 110 ms QT Int : 434 ms P-R-T Axes : 048 -35 -04 degrees QTc Int : 497 ms NORMAL SINUS RHYTHM LEFT AXIS DEVIATION INCOMPLETE RIGHT BUNDLE BRANCH BLOCK CANNOT RULE OUT ANTERIOR INFARCT (CITED ON OR BEFORE 23-JAN-2019) ABNORMAL ECG WHEN COMPARED WITH ECG OF 23-JAN-2019 20:45, NO SIGNIFICANT CHANGE WAS FOUND Confirmed by DESTINY HAMILTON MD ([id number]) on 01/26/2019 11:31:24 AM Referred By: Confirmed By:DESTINY HAMILTON MD
== END 2019-01-24 04:23 | disposition home or self-care (01) ==
LOC: JER 00:19
DX: R94.31 Abnormal electrocardiogram [ECG] [EKG] (principal); F10.10 Alcohol abuse, uncomplicated; I10 Essential (primary) hypertension; R94.5 Abnormal results of liver function studies; D64.9 Anemia, unspecified; E66.9 Obesity, unspecified; Z68.44 Body mass index [BMI] 60.0-69.9, adult
CPT/HCPCS: 36415; 80053; 82550; 82553; 84484; 93005; 93010; 99282-25